=== PATIENT | male | born 1960 | race Caucasian/White ===

== ENCOUNTER 2021-01-18 15:21 | Inpatient (IN) | payer OTHER ==
[~2021-01-18] VITALS: Ht 180.3 cm; Wt 81.9 kg
--- NOTE | 2021-01-18 20:15 | NUR ---
PT ARRIVES TO THE FLOOR VIA STRETCHER. PT IS ABLE TO MOVE HIMSELF FROM STRETCHER TO BED WITH MINIMAL ASSISTANCE. 3L PER NC; SPO2 96%; PT REPORTS NO PAIN AT THIS TIME. ORIENTED BUT DROWSY; PT IS ABLE TO COMPLETE INITIAL MED HISTORY. ICE WATER PROVIDED. ORIENTED PT TO ROOM. CALL LIGHT WITHIN REACH.
--- NOTE | 2021-01-18 20:36 | EKG ---
[facility] [address] [facility] [place], [place] [address] Signed Sinus tachycardia Otherwise normal ECG No previous ECGs available Confirmed by DANA SUNSHINE DO ([id number]) on 01/18/2021 8:36:29 PM Electronically Signed By: DANA SUNSHINE DO 01/18/[id number] PATIENT NAME: DILIPFLOWER Deniz Electrocardiogram DATE OF : 64 PHYSICIAN: DANA SUNSHINE DO REPORT #: [id number] REPORT IS CONFIDENTIAL AND NOT TO BE RELEASED WITHOUT AUTHORIZATION
--- NOTE | 2021-01-18 20:45 | NUR ---
PT'S EX- AND SON ARRIVE. PT'S INFORMS THIS NURSE THAT PT HAS BEEN FALLING AT HOME. PT REPORTS THAT HE HAS NOT SHOWERED IN OVER 2 WEEKS. PT'S FAMILY REPORTS THAT THE PT HAS ALSO BEEN LOSING CONTROL OF HIS BOWELS. PT'S SON STAYS IN ROOM WITH PT AT THIS TIME.
--- NOTE | 2021-01-18 21:30 | NUR ---
PT REPORTS FEELING SLIGHTY SOB. SPO2 95% ON 3L NC. CALL IN TO RT FOR SCHEDULED NEB TREATMENT.
--- NOTE | 2021-01-18 22:30 | NUR ---
CHECKED ON PT. PT REPORTS SLIGHT NAUSEA AND PAIN. CIWA SCORE 9. HR 118-120, RR 27; PT IS RESTLESS IN BED. 1MG IV LORAZEPAM ADMINISTERED. CALL LIGHT WITHIN REACH.
--- NOTE | 2021-01-18 23:31 | NUR ---
CHECKED ON PT. PT IS RESTING COMFORTABLY, APPEARS TO BE SLEEPING WITH EYES CLOSED, EVEN BREATHING NOTED. SPO2 95% ON 3L NC, HR 110, RESP 24. CALL LIGHT WITHIN REACH.
--- NOTE | 2021-01-19 00:24 | NUR ---
CALL LIGHT ANSWERED. PT STATES THAT HE NEEDS TO HAVE A BM. SBA TO BSC. LOOSE STOOL ALREADY IN BED. PT URINATED ON FLOOR D/T NOT SITTING ON BSC CORRECTLY. NEW LINENS PLACED ON BED, FLOOR CLEANED, NEW GOWN ON PT. PT ASSISTED BACK TO BED. PT IS WEAK TO STAND ALTHOUGH MAKES TRANSFER FROM BSC TO BED WITH MINIMAL ASSIST. CALL LIGHT WITHIN REACH, PT DENIES FURTHER NEEDS AT THIS TIME.
--- NOTE | 2021-01-19 02:39 | NUR ---
CALL LIGHT ANSWERED. PT REPORTS LOWER ABDOMINAL PAIN AND NEEDING TO HAVE A BM. PT HAS VISIBLE HAND TREMORS. SBA TO BSC. PT HAD STOOL SMEARS IN BED. 225ML URINE COLLECTED, SCANT STOOL IN BSC BUCKET. PT BACK TO BED. CIWA SCORE 9. 1MG IV LORAZEPAM ADMINSTERED AT THIS TIME. CALL LIGHT WITHIN REACH.
--- NOTE | 2021-01-19 05:34 | NUR ---
IN ROOM FOR MORNING ASSESSMENT. PT WAS RESTING WITH EYES CLOSED; GRUNTS IN RESPONSE TO NURSE IN ROOM. VSS. ABDOMEN REMAINS DISTENDED AND FIRM. BOWEL TONES ACTIVE. BLE 2+ REMAINS. LUNG SOUNDS CLEAR AND DIM. PT REQUESTS JUICE; APPLE JUICE AND FRESH WATER PROVIDED. CALL LIGHT WITHIN REACH.
--- NOTE | 2021-01-19 07:30 | NUR ---
patient shift report recieved from retail shift leader rn. patient resting i nbed at this time. call light in reach. patient calls appropriately.
--- NOTE | 2021-01-19 08:30 | NUR ---
PATIENT UP TO USE CAMMODE AND MISSED CAMMODE. URINE ON THE FLOOR. LUCY GRAF WAS IN WITH PATIENT AT THIS TIME. URINE CLEANED UP AND PATIENT BACK TO BED. WILL CONTINUE TO CLOSELY MONITOR.
--- NOTE | 2021-01-19 09:15 | NUR ---
THIS RN IN AND ASSESSMENT COMPELTED. PATIENT BREATH SOUNDS CLEAR. PATIENT ON 2L NC. PATIENTS CIWA IS APPROX 8. GAVE PRN ORAL ATIVAN FOR COVERAGE. ALL MEDICATIONS GIVEN. PATIENT SWALLOWS PILLS 1 AT A TIME. PATIENTS ABD IS FIRM, DISTENDED, AND TENDER. PATIENT COMPLAINING OF PAIN RADIATING THROUGH TO HIS LOWER BACK. WILL SPEAK WITH MD ABOUT PAIN COVERAGE. PATIENTS EX- NAVEEN IS AT THE BEDSIDE. WILL CONTINUE TO CLOSELY MONITOR.
--- NOTE | 2021-01-19 09:45 | NUR ---
THIS RN IN TO SEE PATIENT AND MD AT THE BEDSIDE. REVIEWED PLAN OF CARE WITH PATIENT AND JOURDAN. ALL QUESTIONS ANSWERED. WILL CONTINUE TO CLOSELY MONITOR.
--- NOTE | 2021-01-19 11:28 | NUR ---
PATIENT RESTING IN BED WITH HIS EX- JOURDAN AT THE BEDSIDE. LIDODERM PATCH PLACE ON RIGHT LOWER BACK FOR PAIN. WILL ALLOW PATIENT TO REST AT THIS. CALL LIGHT IN REACH.
--- NOTE | 2021-01-19 12:18 | NUR ---
SOFIA GRAF IN TO ASSIST PATIENT WITH URINAL AT THE BEDSIDE. PATIENT TOLERATED WELL AND NOW BACK TO BED. PATIENTS BROTHER AT THE BEDSIDE. WILL CONTINUE TO CLOSELY MONITOR.
--- NOTE | 2021-01-19 13:45 | NUR ---
PATIENT REQUESTED TO BE BOOSTED UP IN BED. PATIENT STATES " MY BACK IS REALLY HURTING AGIN". GAVE PRN OXYCODONEFOR BACK/ABD PAIN 01/17 AND REPOSITIONED. LAW EARL IS AN 8 AT THIS TIME, GAVE A DOSE OF ORAL ATIVAN. PATIENTS HR ALSO NOTED TO BE INCREASED TO THE 120'S. PATIENT MEDICATIONS GIVEN. PATIENT TALKING WITH STAFF ABOUT HIS CONDITION AND THE TREATMENT HE IS RECIEVING FOR IT AT THIS TIME. UPDATED ON PLAN OF CARE. NO OTHER QUESTIONS AT THIS TIME. PATIENT REFUSED LUNCH, BUT WANTED SOME JUICE. ORDERED JUICE FROM THE KITCHEN. NO OTHER NEEDS AT THIS TIME. WILL CONTINUE TO CLOSELY MONITOR.
--- NOTE | 2021-01-19 15:45 | NUR ---
PATIETN RESTING IN BED. PATIENT REPORTS PAIN IS IMPROVED AFTER PRN PAIN MEDICATION. WILL CONTINUE TO ALLOW PATIENT TO REST AT THIS TIME. CALL LIGHT IN REACH.
--- NOTE | 2021-01-19 17:43 | NUR ---
PATIENT CALLED AND REQUESTED PAIN MEDICATION AND SOMETHING FOR ANXIETY. EDUCATED HE IS NOT DUE FOR PRN PAIN MEDICATIONS. PATIENT IS OKAY WAITING FOR PAIN MEDS AND STATES ITS NOT TO BAD RIGHT NOW. REPOSITIONED TO HIS SIDE FOR COMFORT. PATIETNS CIWA IS 8. PATIENT IS ALERT AND ORIETNED, IS FEELING A LITTLE FLUSHED, HR 110, AND FEELING A LITTLE ANXIOUS. PATIENTS EX- IS ALSO AT THE BEDSIDE TALKING WITH PATIENT ABOUT HIS BILLS AND RESPONSIBILITIES AT HOME. PRN ATIVAN GIVEN. WILL CONTINUE TO CLOSELY MONTIOR.
--- NOTE | 2021-01-19 18:20 | NUR ---
STAFF BOOSTED PATIENT UP IN BED. PATIENTS EX- AT THE BEDSIDE TO ASSIST PATIENT WITH HIS CHICKEN NOODLE SOUP. PATIENT REPROTS ANXIETY IS BETTER AT THIS TIME. CALL LIGHT IN REACH. WILL CONTINUE TO CLOSELY MONITOR.
--- NOTE | 2021-01-19 19:30 | NUR ---
REPORT RECEIVED FROM DAY SHIFT. PT IN BED, EYES CLOSED. RESTING HR 115'S.
--- NOTE | 2021-01-19 20:30 | NUR ---
PT ASKS FOR PAIN MEDS FOR 6/10 BACK/ABD PAIN. 2.5MG OXYCODONE GIVEN.
--- NOTE | 2021-01-19 23:15 | NUR ---
PT CALLS TO ASK FOR SOMETHING TO HELP HIM SLEEP. 1MG PO ATIVAN GIVEN, JACQUELINE 8.
--- NOTE | 2021-01-20 00:10 | NUR ---
PT CALLS TO STATE THAT HE HAD SAT UP TO EDGE OF BED AND TRIED TO USE URINAL BUT MISSED. PT HELPED TO CLEAN UP, ASSISTED BACK TO BED. BED ALARM ON.
--- NOTE | 2021-01-20 02:00 | NUR ---
PTS SPO2 DROPPING DOWN TO 88%, FOUND WITH O2 OFF, PLACED BACK ON 2L/NC AND UP TO 92%. PT ASKS FOR A NEB TX, STATES "I CAN TELL IM GOING TO START COUGHING, CAN I HAVE ONE OF THOSE TREATMENTS?". RT NOTIFIED AND ON THE WAY TO DO NEB.
--- NOTE | 2021-01-20 03:15 | NUR ---
PT GIVEN PAIN MEDICATION PER REQUEST FOR BACK/ABD PAIN. ASSESSMENT DONE, UP TO VOID THEN BACK TO BED.
--- NOTE | 2021-01-20 05:30 | NUR ---
UP TO VOID, UNSTEADY ON FEET, STOOD AT BEDSIDE TO USE URINAL WITH ASSIST. BACK TO BED WITH BED ALARM ON.
--- NOTE | 2021-01-20 07:30 | NUR ---
PATIENT SHIFT REPORT RECIEVED FROM GOVERNMENT AFFAIRS SPECIALIST RN. PATIENT RESTING AT THIS TIME. CALL LIGHT IN REACH. WILL CONTINUE TO CLOSELY MONITOR. BED ALARM ON.
--- NOTE | 2021-01-20 08:45 | NUR ---
BED ALARM GOING OFF. PATIENT SITTING UP TO THE EDGE OF THE BED WITH JOURDAN AT THE BEDSIDE. PATIENT REPROTS HE NEEDS TO URINATE.THIS RN ASSISTED PATIENT TO STAND. PATIENT IS MUCH MORE BALANCED THIS AM THAN NOTED YESTERDAY. PATIENT IS MORE AWAKE AND FOLLOWING COMMANDS. PATIENT DOES NOT APEPAR SHAKY AT THIS TIME. NEW ATTENDS PLACED. PATIENT ASSISTED BACK TO BED. EX- JOURDAN REMAINS AT THE BEDSIDE. BED ALARM ON. BREAKFAST ORDERED. WILL CONTINUE TO CLOSELY MONITOR.
--- NOTE | 2021-01-20 09:30 | NUR ---
PATIENT ASSESSMETN COMPLETED. PATIENT SITTING UP IN BED. MEDICATIONS GIVEN. PRN PAIN MEDICATION PROVIDED FOR PAIN 5/5 IN HIS ABD AND BACK. LIDODERM PATCH APPLIED TO RIGHT MID BACK. NICOTINE PATCH ON LEFT SHOULDER. BREATH SOUNDS CLEAR. PATIENT ON RA AT THIS TIME AND SPO2 NOTED TO BE 92-96%. PATIENTS ABD APPEARS LESS SWOLLEN THAN YESTERDAY. ABD IS STILL DISTENDED AND TIGHT, BUT NOT PAINFUL PER PATIENT. EDEMA NOTED IN BLE. ALL QUESTIONS ANSWERED. NO OTHER NEEDS AT THIS TIME. BED ALARM ON FOR PATIENT SAFETY. WILL CONTINUE TO CLOSELY MONITOR.
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
--- NOTE | 2021-01-20 11:40 | NUR ---
THIS RN TOOK PATIENT TO NEW ROOM 111 VIA BED. ALL BELONGINGS SENT WITH PATIENT. ONCE IN HIS NEW ROOM, ASSISTED PATIENT UP TO THE SCALE FOR A STANDING WEIGHT AND SO PATIENT COULD URINATE. PATIENT TOERLATED WELL AND ASSISTED BACK TO BED. CALL LIGHT PROVIDED. BED ALARM ON FOR PATIENT SAFETY. PATIENT LOOKING AT THE MENU TO ORDER LUNCH. RUEL GRAF IS AT THE BEDSIDE. NO FURTHER QUESTIONS AT THIS TIME.
--- NOTE | 2021-01-20 11:52 | NUR ---
PT ARRIVED TO FLOOR VIA BED FROM CCU. PT IS AWAKE AND ANSWERING QUESTIONS. VITALS TAKEN AND STABLE. MAGNESIUM 4GM IS INFUSING. PT IS VISIBLE FROM NURSING STATION. PT ORIENTED TO ROOM. STANDING WEIGHT OBTAINED. CALL LIGHT AND PERSONAL ITEMS WITHIN REACH. LUNCH ORDERED. PT RATES ABDOMINAL PAIN AT 3/10.
--- NOTE | 2021-01-20 12:09 | NUR ---
PATIENT SHIFT REPORT RECIEVED FROM CLAIMS AGENT RIGHT OF WAY RN. PATIENT RESTING AT THIS TIME. CALL LIGHT IN REACH. WILL CONTINUE TO CLOSELY MONITOR. BED ALARM ON.
--- NOTE | 2021-01-20 12:33 | NUR ---
PT USED CALL LGITH APPROPRIATLY AND CALLED NURSING STAFF TO ASSIST TO USE URINAL. PT STOOD AT SIDE OF BED [facility] NURSE. PT IS UNSTEADY ON FEET ALMOST FALLING FORWARD. PT REFUSED TO SIT IN CHAIR FOR [facility] HAND REPORTS HE IS NOT HUNGRY AT THIS MOMENT. CALL LIGHT IN REACH.
--- NOTE | 2021-01-20 13:11 | NUR ---
PT LAYING DOWN FOR NAP. WARM BLANKET PROVIDED.
--- NOTE | 2021-01-20 14:34 | NUR ---
IN TO RENEE NEUMANN. PT LYING IN BED WATCHING TV. CIWSA DONE. PT SCORE IS 1. PT DENIES NEEDS. CALL LIGHT IN REACH.
--- NOTE | 2021-01-20 15:20 | NUR ---
PT AMBULATED IN HALLS WITH NURSE AND FWW 1 SMAL LAP WITH MULTIPLE STANDIGN BREAKS. PT NEEDING MULTIPLE CUES TO NOT LEAN ON ARMS AND STAND UP STRAIGHT. PT ASSITED BACK IN BED. DINNER ORDERED AND PAIN PILL FOR 6/10 BACK PAIN PROVIDED. WATER REFRESHED. PT DENIES FURTHER NEEDS.
--- NOTE | 2021-01-20 15:48 | NUR ---
PT CALLED REQUESTING NICOTINE LOZENGE.
--- NOTE | 2021-01-20 20:06 | NUR ---
PATIENT REQUESTING ATIVAN, VISUAL TREMORS NOTED, PATIENT CLAMMY/SWEATY, AND UNSURE OF DATE. 2MG PO ATIVAN GIVEN AND A JOSE L LOZANGE. ICE WATER REFILLED. HELPED PATIENT WITH URINAL. PATIENT IN BED WITH CALL LIGHT IN REACH.
--- NOTE | 2021-01-20 21:35 | NUR ---
REPORT RECEIVED FROM HOMAR COBB, THIS RN TO RESUME CARE FOR pt. pt RESTING QUIETLY IN BED WITH EYES CLOSED, RR EVEN AND UNLABORED. NO DISTRESS NOTED, pt APPEARS COMFORTABLE AND RELAXED. BED ALARM ON FOR SAFETY.
--- NOTE | 2021-01-20 22:41 | NUR ---
CALL LIGHT ANSWERED, ROOM TEMP INCREASED PER pt REQUEST. CIWA NEGATIVE AT THIS TIME, pt DENIES ANXIETY/AGITATION. RR EVEN AND UNLABORED, RR 20. HR 110, O2 SAT MID 90'S ON RA. ORIENTED AND CALLING APPROPRAITELY. BED ALARM REMAINS ON FOR SAFETY, pt DENIES NEED TO VOID. NO FURTHER NEEDS, CALL LIGHT IN REACH. ALLOWED pt TO CONTINUE RESTING, WILL MONITOR FOR CHANGES.
--- NOTE | 2021-01-21 01:30 | NUR ---
BED ALARM GOING OFF, pt SITTING ON EDGE OF BED. pt UP TO VOID 1PA, 125MLS CONCENTRATED URINE NOTED. pt BACK IN BED, UNSTEADY ON FEET. pt THEN UP WITH HELP FROM THIS RN AND HOMAR KRAUSE TO HAVE BM, AGAIN UNSTEADY. pt BACK IN BED WITH ALARM ON. CIWA SCORE OF 8 D/T FELINGS OF ANXIETY/RESTLESSNESS AND VISUABLE TREMORS, PRN ANXIETY MED GIVEN (SEE EMAR). pt REPORTS 3/10 PAIN, IMPROVED WITH REPOSITIONING, UNABLE TO GIVE PAIN MEDS AT THIS TIME, pt AWARE. CALL LIGHT IN REACH, pt REQUESTING BREATHING TREATMENT D/T COUGH. RT WILLY AWARE.
--- NOTE | 2021-01-21 01:35 | NUR ---
CALL LIGHT ANSWERED, pt REPORTS SPILLING WATER ON FLOOR. WATER CLEANED UP AND FRESH WATER GIVEN. CALL LIGHT IN REACH.
--- NOTE | 2021-01-21 01:37 | NUR ---
WATER AGAIN SPILLED ON FLOOR, MESS CLEANED AND pt DENIES FURTHER NEEDS. CALL LIGHT IN REACH. BED ALARM ON FOR SAFETY.
--- NOTE | 2021-01-21 01:55 | NUR ---
RT WILLY IN ROOM FOR PRN BREATHING TREATMENT.
--- NOTE | 2021-01-21 03:34 | NUR ---
pt RESTING QUIETLY IN BED WITH EYES CLOSED, RR EVEN AND UNLABORED. NO DISTRESS NOTED, CALL LIGHT IN REACH AND BED ALARM ON.
--- NOTE | 2021-01-21 06:12 | NUR ---
VSS AND I&O'S COMPLETE, DAILY WEIGHT ALSO DONE. pt DENIES NEED TO VOID, HAS ONLY VOIDED 175MLS THIS SHIFT, pt BLADDER SCANNED, HIGHEST RESULT OF 351MLS. WILL MONITOR AND HAVE pt ATTEMPT TO VOID PRIOR TO SHIFT CHANGE. NO FURTHER NEEDS, CALL LIGHT IN REACH. PRE SCHOOL MANAGER BAILEY AWARE.
--- NOTE | 2021-01-21 07:10 | NUR ---
pt UP TO VOID, 125MLS CONCENTRATED URINE NOTED. pt SHORT 186MLS FOR SHIFT UO, MESSAGE SENT TO DR SUNSHINE. pt BACK IN BED AND ALARM ON FOR SAFETY. CALL LIGHT IN REACH.
--- NOTE | 2021-01-21 07:24 | NUR ---
REPORT RECEIVED. PT IN BED AWAKE WATCHING TV. 1L NC IN PLACE FOR PATIENT COMFORT. PT 94% ON RA. 97% ON 1 L NC. PT ALSO WANTING TO KEEP PULSE OXEMETRY IN PLACE BECAUSE IT MAKES HIM FEEL LIKE HE HAS A CIGARETTE IN HAND. BED ALARM IN PLACE. CALL LIGHT IN REACH.
--- NOTE | 2021-01-21 07:33 | NUR ---
PT AWAKE IN BED. WHITE BOARD UPDATED. WARM CLOTH GIVEN FOR FACE. CALL LIGHT WITHIN REACH. NO FURTHER NEEDS AT THIS TIME.
--- NOTE | 2021-01-21 07:52 | NUR ---
RESPITORY THERAPY IN FOR BREATHING TREATMENT
--- NOTE | 2021-01-21 09:30 | NUR ---
Pt lives in a house with his exwife. Moved to [place] one year ago. Pt does not have a pcp. He abuses alcohol and does agree to Peer to Peer support. Called and spoke with Esther and she will visit from [facility] this afternoon. Pt is unsteady on his feet and is using a walker. Per exwife he can return home with her and she will care for him. Brother, Hugo, is also present from [facility]. I will find a pcp for pt.
--- NOTE | 2021-01-21 09:40 | NUR ---
Delivered [facility] brochure to Rasheed. Dr. Myers updating pt and brother. He will order PT/OT, [employer] to work with pt. Possible dc tomorrow or the next. I contacted [facility] and they will schedule with Dr. Guzman depending on day of dc. Pt will need to see pcp and follow up for comprehensive liver MRI as out patient.
--- NOTE | 2021-01-21 09:50 | NUR ---
ROUNDED WITH DR SUNSHINE AND JOSE FROM CASE MANAGEMENT TO DISCUSS PLAN OF CARE DURING HOSPITAL STAY AND DISCHARGE. ALL PT'S QUESTIONS ANSWERED. BROTHER AT BEDSIDE DURING MEETING.
--- NOTE | 2021-01-21 10:45 | NUR ---
OCCUPATIONAL THERAPY IN TO ASSESS PT.
--- NOTE | 2021-01-21 11:02 | NUR ---
PEER TO PEER IN WITH PT.
--- NOTE | 2021-01-21 14:20 | NUR ---
PT IS AMBULATING IN [place] WITH Fan FULLER. WILL CHECK BACK
--- NOTE | 2021-01-21 14:24 | NUR ---
PT WORKING WITH PHYSICAL THERAPY.
--- NOTE | 2021-01-21 14:38 | NUR ---
PT FINISHED WITH PHYSICAL THERAPY AND IS REQUESTING PAIN MEDICAITON, BREATHING TREATMENT AND NICOTINE LOZENGE. PT REPORTS 6/10 PACK AND LEFT HIP PAIN. 2.5MG OXYCODONE ADMINISTERED AND LOZENGE PROVIDED. RT IN TO [facility]ES. PT NOW IN BED ON PHONE WITH EX .
--- NOTE | 2021-01-21 16:45 | NUR ---
ASSISTED PT TO SHOWER. PT VERY ONSTEADY ON FEET. HAD SIT OON SHOWER CHAIR. PT REPORTS 2/10 PAIN ONCE BACK TO BED. PT HAVING SOME AXIETY. CIWA 7. 1MG ATIVAN ADMINISTERED. FAMILY AT BEDSIDE. DINNER ORDERED. CALL LIGHT IN REACH.
--- NOTE | 2021-01-21 19:28 | NUR ---
REPORT RECEIVED FROM DAY SHIFT RN. PT LYING IN BED RESTING WITH EYES CLOSED. RESPIRATIONS EVEN. CALL LIGHT IN HAND. WHITE BOARD UPDATED. BED ALARM FOR SAFETY.
--- NOTE | 2021-01-21 21:15 | NUR ---
BED ALARM SOUNDING. PT TRANSFERRED SELF TO CHAIR BEFORE STAFF COULD ENTER ROOM. REMINDED PT TO USE CALL LIGHT WHEN GETTING OUT OF BED DUE TO BEING UNSTEADY, PT STATES "I'M GETTING BETTER". PT WANTED TO SIT IN RECLINER TO LOOK OUT WINDOW. ASSESSMENT COMPLETE. PITTING EDEMA AND DISTENDED ABD NOTED. PT WITH LOOSE COUGH. DENIES SOB AT THIS TIME. SBA AND FWW TO BR FOR UNMEASURED CONCENTRATED VOID. GAIT UNSTEADY. PT LEANS BACK WITH AMB. BACK TO BED. PRN ADMINISTERED FOR CIWA OF 8 AND PRN FOR PAIN ADMINISTERED FOR C/O BACK PAIN. VS AND I&O COMPLETE. PT DENIES QUESTIONS OR CONCERNS. CALL LIGHT IN REACH.
--- NOTE | 2021-01-21 22:39 | NUR ---
CALL LIGHT ANSWERED. PT REQUESTING SNACK. KEARAO X2 PROVIDED. BED ALARM ON.
--- NOTE | 2021-01-22 00:15 | NUR ---
PT RESTING IN BED WITH EYES CLOSED, NAD.
--- NOTE | 2021-01-22 02:04 | NUR ---
CALL LIGHT ANSWERED. PT UP TO BR WITH SBA AND FWW TO ATTEMPT BM WITH NO RESULTS. PT WITH CONCENTRATED UNMEASURED VOID. GAIT WEAK. BACK TO BED, YUKI WELL. PT REQUESTING PRN FOR ANXIETY, PROVIDED. PT WITH PERSISTENT COUGH. REQUESTING PRN BREATHING TX. RT NOTIFIED. BED ALARM FOR SAFETY.
--- NOTE | 2021-01-22 04:06 | NUR ---
CALL LIGHT ANSWERED. PT REPORTS BACK PAIN 01/17. PRN FOR PAIN ADMINISTERED PER EMAR. ASSISTED PT TO REPOSITION IN BED. ASSESSMENT COMPLETE. PT DENIES FURTHER NEEDS AT THIS TIME. CALL LIGHT IN REACH. BED ALARM FOR SAFETY.
--- NOTE | 2021-01-22 07:33 | NUR ---
this rn recived report from cierra kendrick. pt appears to be resting with respirations noted
--- NOTE | 2021-01-22 08:45 | NUR ---
THIS RN IN PTS ROOM TO GIVE PT HIS MORNING MEDS. PTS IN ROOM AND PTS BROTHER IN ROOM TO FOLLOW. PT SITTING UP TO EAT BREAKFAST, PT STATES THAT HE IS DONE, WHEN THIS RN ENTERED ROOM PT WAS COUGHING AFTER EATING. PT APPEARS TO BE WEAK BECAUSE HE IS UNABLE TO GET A DEEP COUGH TO MAKE IT PRODUCTIVE- PTS COUGH NOTED TO BE NEEDED TO BE PRODUCTIVE. THIS RN ASKED MD FOR SPEECH EVAL- ORDERED. THIS RN DISCUSSED WITH PTS FAMILY THE IMPORTANCE OF HAVING SPEECH THERAY EVAL DUE TO PTS PNUEMONIA STATUS AND POSSIBLE ASPIRATION RISK. PT REPORTS PAIN- PAIN MEDS NOT DUE YET. PT CIWA LESS THAN 8
--- NOTE | 2021-01-22 09:00 | NUR ---
Spoke with pt and ex . Friend is also in the room. Pt states he spoke with Esther smallwood [facility] and will follow up with her on dc. States he is tired and ex states he is grumpy today. Friend in the room working on POA forms as pt wants financial poa completed. Gave my email for him to send to and I will print and deliver to the room. Delivered form to room and asked if I should call Not[facility]. Juan Daniel states nursing has already called.
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
--- NOTE | 2021-01-22 12:50 | NUR ---
PATIENT GIVEN PRN LOZENGE PER REQUEST. PATIENT IS VISITING WITH BROTHER. LUNCH ORDER PLACED FOR PATIENT. PATIENT DENIES ANY FURTHER NEEDS. CALL LIGHT IN REACH.
--- NOTE | 2021-01-22 13:41 | NUR ---
PATIENT IS RESTING IN BED VISTING WITH FAMILY. PATIENT DENIES ANY NEEDS. CALL LIGHT IN REACH.
--- NOTE | 2021-01-22 14:05 | NUR ---
THIS RN IN PTS ROOM TO CHECK ON PT. PT SITTING UP IN BED WITH , SON AND DAUGHTER IN LAW. PT REPORTS NEEDING NOTHING AT THIS TIME. ALL QUESTIONS ANSWERED TO THE BEST OF THIS RNS ABILITY
--- NOTE | 2021-01-22 15:00 | NUR ---
THIS RN IN PTS ROOM. PT SITTING ON EDGE OF BED. PT REPORTS WANTING A PAIN PILL, THIS RN DISCUSSED WITH PT THAT IT WASN'T TIME FOR A PAIN PILL AT THIS TIME. PT ALSO REQUESTING AN ANTI ANXIETY MED. THIS RN DISCUSSED WITH PT THAT HE IS NOT SCORING THE AMOUNT TO RECIEVE THE ATIVAN DUE TO IT BEING THERE TO HELP WITH WITHDRAWL SYMPTOMS
--- NOTE | 2021-01-22 18:00 | NUR ---
LARS RN IN TO CHECK ON PT. VITALS DONE- PT RESTING COMFORTALBY. PT STATES THAT PAIN IS BETTER. PT IS LAYING FLAT PT DOES HAVE DRY/ UNPRODUCTIVE COUGH- PT DOES HAVE ACUPELLA AT BEDSIDE- USES WHEN QUED.
--- NOTE | 2021-01-22 19:34 | NUR ---
REPORT RECEIVED FROM DAY SHIFT RN. PT UP TO BR WITH SBA TO VOID AND HAVE BM. BACK TO BED, YUKI WELL. NO FURTHER NEEDS AT THIS TIME. WHITE BOARD UPDATED. CALL LIGHT IN REACH.
--- NOTE | 2021-01-22 20:12 | NUR ---
EVENING ASSESSMENT COMPLETE. PT REPORTS PAIN IS TOLERABLE AT THIS TIME. DENIES SOB. PITTING EDEMA NOTED IN BLE. ABD DISTENDED AND FIRM. VS WNL. I&O COMPLETE. PT REMAINS WELL WITHIN FLUID RESTRICTION. PT DENIES QUESTIONS OR CONCERNS. BED ALARM FOR SAFETY. CALL LIGHT IN REACH.
--- NOTE | 2021-01-22 23:38 | NUR ---
CALL LIGHT ANSWERED. SBA WITH FWW TO RESTROOM FOR VOID AND LARGE LOOSE BM. pt BACK IN BED AT THIS TIME. GAIT STEADY AT THIS TIME WTIH WALKER. pt REQUESTING NEXT PRN PAIN MEDICATION WHEN AVAIALBLE. PRIMARY RN NOTIFIED. BED ALARM ON.
--- NOTE | 2021-01-22 23:55 | NUR ---
PT REPORTS 5/10 BACK/HIP PAIN. PRN FOR PAIN ADMINISTERED PER EMAR. NO FURTHER NEEDS AT THIS TIME. CALL LIGHT IN REACH. BED ALARM FOR SAFETY.
--- NOTE | 2021-01-23 02:03 | NUR ---
PT RESTING IN BED WITH EYES CLOSED, NAD.
--- NOTE | 2021-01-23 03:56 | NUR ---
PT LYING IN BED ON RIGHT SIDE RESTING WITH EYES CLOSED. RESPIRATIONS EVEN. BED ALARM FOR SAFETY.
--- NOTE | 2021-01-23 06:09 | NUR ---
PT UP TO BR WITH SBA AND FWW TO VOID AND HAVE LARGE FORMED BM. GAIT STEADY. DAILY WEIGHT OBBTAINED AND CHARTED. BACK TO BED, YUKI WELL. VS AND I&O COMPLETE. PT REMAINS WITHIN FLUID RESTRICTION. REPORTS PAIN IS TOLERABLE. NO FURTHER NEEDS AT THIS TIME. CALL LIGHT IN REACH. BED ALARM FOR SAFETY.
--- NOTE | 2021-01-23 07:25 | NUR ---
THIS RN RECEIVED REPORT FROM [facility]. PT APPEARS TO BE RESTING COMFORTABLY WITH RESPIRATIONS NOTED.
--- NOTE | 2021-01-23 08:30 | NUR ---
THIS RN TO HOLD PTS MORNING MEDS UNTIL SPEECH THERAPY ABLE TO EVLAUATE PTS SWALLOW. PT APPEARS TO BE RESTING THIS AM COMFORTABLY. PT IS PLANNED TO WORK WITH SPEECH THERAPY, OCCUPATIONAL THERAPY, AND PHYSICAL THERAPY.
--- NOTE | 2021-01-23 09:45 | NUR ---
THIS RN IN PTS ROOM TO CHECK ON PT AND GIVE MORNING MEDS. PT HAS WORKED WITH 2 THERAPIES THIS AM- PT IS CLEARED TO EAT AND DRINK BY SPEECH. PT STATES THAT HE IS TIRED AFTER WORKING WITH 2 THERAPIES AND WANTS TO WAIT ON PHYSCIAL THERAPY. THIS RN DISCUSSED WITH PT THAT WE STAFF CAN ONLY SO [facility] FOR HIM BUT THAT HE NEEDS TO PUT IN THE WORK WELL WITH THE THERAPIES TO GET BETTER- PT AGREEABLE TO THERAPIES.
--- NOTE | 2021-01-23 10:36 | NUR ---
returned [employer] form for lending of equipment. Faxed to [employer] for and she will visit them today or tomorrow to supervisor picking crew equipement.
--- NOTE | 2021-01-23 10:50 | NUR ---
THIS RN IN PTS ROOM TO HANG PTS MAG AND GIVE PT REQUESTED PAIN PILL. PT STATES THAT HE NEEDS NOTHING FURTHER AT THIS TIME
--- NOTE | 2021-01-23 12:45 | NUR ---
THIS RN IN PTS ROOM TO ASSIST PT TO RESTROOM. PT IMPULSIVE WHEN STANDING BUT ONCE WALKING IS STEADY ON HIS FEET.
--- NOTE | 2021-01-23 13:15 | NUR ---
THIS RN IN PTS ROOM TO ASSIT PT TO BATHROOM AGAIN. PT HAD STATED THAT HIS BACK WAS HURTING. THIS RN PROVIDED PT WITH A HEAT PACK- HEAT PACK DID PRIVIDE RELIEF BUT DID MAKE PTS SKIN RED. HEAT PACK PLACED IN A PILLOW CASE TO PROTECT SKIN FURTHER. PT IS NOW QUANITY SUFFIENT
--- NOTE | 2021-01-23 13:38 | NUR ---
THIS RN DISCUSSED WITH ABOUT PTS FAMILY REQUEST FOR A CREAM FOR PTS BACK. CREAMS ARE CONTRAINDICATED AT THIS TIME.
--- NOTE | 2021-01-23 13:45 | NUR ---
Spoke with Talia. Reviewed needs for dc to home. Pt feels he is able to get in and out of a care. Juan Daniel will seed cone picker equipment from [place]. She denies other needs. She does state concern pt will not continue to walk at home. I will ask Dr. Rain for a HH order for PT. Discussed there may be a copay, and they may refuse service if they are unable to pay. Pt cont. to plan for dc to home with ex .
--- NOTE | 2021-01-23 14:43 | NUR ---
ATTEMPTED TO VISIT PT. LEEANNE HANSEN IN WITH PT. WILL CHECK BACK
--- NOTE | 2021-01-23 17:10 | NUR ---
THIS RN IN PTS ROOM TO V EPT PAIN MEDS REQUESTED. PT REPORTS THAT HIS PAIN IS 6/10. PT HAS NO OTHER CONCERNS OR NEEDS AT THIS TIME.
--- NOTE | 2021-01-23 18:13 | NUR ---
PT APPEARS TO BE RESTING COMFORTABLY AT THIS TIME WITH RESPIRATIONS NOTED. PTS TO LEAVE FOR THE EVENING
--- NOTE | 2021-01-23 19:05 | NUR ---
SHIFT REPORT RECEIVED FROM RAJNI GRAF. PT RESTING IN BED. NO NEEDS AT THIS TIME. CALL LIGHT IN REACH.
--- NOTE | 2021-01-23 21:28 | NUR ---
ASSESSMENT, VS AND I&O COMPLETED. PATCHES REMOVED. GCS 15, A&O X4. PT BACK PAIN 3/10, HEAT PACK PROVIDED. IVs WNL, CDI, FLUSHED WELL. LUNGS CLEAR, HEART TONES REGULAR. ABD SEVERELY DISTENDED, FIRM, NONTENDER, BOWEL TONES ACTIVE. CMS INTACT. BLE 2+ EDEMA, BILATERAL FEET, 3+ EDEMA. LOZENGE PROVIDED. NO OTHER NEEDS AT THIS TIME. CALL LIGHT IN REACH.
--- NOTE | 2021-01-23 22:00 | NUR ---
PT REQUESTS SOMETHING TO HELP HIM SLEEP. MD NOTIFIED. TELEPHONE ORDER PROVIDED FOR BENADRYL 50MG PO ONCE FOR SLEEP. ORDER REPEATED BACK.
--- NOTE | 2021-01-23 22:28 | NUR ---
SCHEDULED MED PROVIDED. ICE WATER PROVIDED. NO OTHER NEEDS. CALL LIGHT IN REACH.
--- NOTE | 2021-01-23 23:43 | NUR ---
PT STATES HE HAS 4/10 BACK AND LEFT HIP PAIN, PRN PAIN MED PROVIDED. NO OTHER NEEDS. CALL LIGHT IN REACH
--- NOTE | 2021-01-24 00:54 | NUR ---
PT RESTING IN BED, CALL LIGHT IN REACH.
--- NOTE | 2021-01-24 02:10 | NUR ---
PT CALLED, SBA WITH FWW TO AND FROM BATHROOM. ASSISTED WITH COVERS. BED ALARM PLACED. NO OTHER NEEDS AT THIS TIME.
--- NOTE | 2021-01-24 03:19 | NUR ---
PT CALLED ASKING FOR A WARM BLANKET. HE DENIES FURTHER NEEDS. CALL LIGHT IS CLOSE.
--- NOTE | 2021-01-24 03:59 | NUR ---
PT RESTING IN BED, CALL LIGHT IN REACH.
--- NOTE | 2021-01-24 05:45 | NUR ---
ASSESSMENT, VS AND I&O COMPLETED. PT BACK AND LEFT HIP PAIN 4/10, PRN PAIN MED PROVIDED. GCS 15, A&O X4. LUNGS CLEAR, HEART TONES REGULAR. ABD FIRM, NONTENDER, SEVERE DISTENTION, BOWEL TONES ACTIVE. BLE HAS 2+ EDEMA, BILATERAL FEET HAVE 3+ EDEMA. CMS INTACT. PT DECLINES TO COMPLETE DAILY WEIGHT AT THIS TIME. NO OTHER NEEDS. CALL LIGHT IN REACH.
--- NOTE | 2021-01-24 07:50 | NUR ---
this rn to assume care while wilfredo rn off of floor.
--- NOTE | 2021-01-24 08:44 | NUR ---
this rn assisted pt to restroom per pt request. pt impulsive and stands fast but is steady on feet with the fww. pt attempted to stand to pee. this rn discussed with pt to sit to pee. pt compliant
[2021-01-24] MEDS ORDERED: NICOTINE LOZENGE4 MG BUCCAL (09:17)
[2021-01-24] MEDS ORDERED: SPIRONOLACTONE25 MG PO (09:17)
[2021-01-24] MEDS ORDERED: LACTULOSE20 GM/30 M PO (09:18)
[2021-01-24] MEDS ORDERED: FUROSEMIDE20 MG PO (09:19)
[2021-01-24] MEDS ORDERED: VITAMIN B-1100 MG PO (09:19)
[2021-01-24] MEDS ORDERED: POTASSIUM CHLO10 MEQ PO (09:20)
--- NOTE | 2021-01-24 09:20 | NUR ---
LARS RN IN PTS ROOM TO GIVE PT HIS MORING MEDS. PT SITTING UP IN BED. SIGNIFICANT OTHER TO GET CLOTHES AND PT TO DISCHARGE TODAY. PT HAS NO COMPLATINTS. EDUCATION PROVIDED TO PT ABOUT STAYING ON HIS FLUID RESTRTICTION. PT AGREABLE
[2021-01-24] MEDS ORDERED: PROVENTIL HFA6.7 GM INH (10:56)
--- NOTE | 2021-01-24 11:40 | NUR ---
ALL DISCHARGE INSTRUCTIONS REVIEWED WITH PT. AND QUESTIONS ANSWERED. PT LEFT WITH ALL BELONGINGS WITH AND CUT OUT PRESS OPERATOR VIA WHEELCHAIR.
--- NOTE | 2021-01-24 13:05 | NUR ---
Face sheet, F2F, H&P, DC summary, extended order for HH faxed to [facility] as per pt's request.
--- NOTE | 2021-01-24 14:08 | NUR ---
PT ALERT, ORIENTED AND LAYING IN BED VISITING WITH HIS EX-. PT IS PLEASANT AND WAS VERY PLEASED WITH CARE HE HAS RECEIVED AT [facility]. GAVE ENCOURAGEMENT TO BOTH, PT ACKNOWLEDGED HE HAS A BIT OF A DURAN ON HIS HANDS. REQUESTED PRAYER, GAVE G.POST AND BLESSING. PT TO DC LATER TODAY
== END 2021-01-24 11:40 | disposition home health service (06) | DRG 871 ==
LOC: ED 15:21 → MS 19:14 → CCU 19:14 → MS 01-20 11:31
PROVIDERS: ADMIT Student in an Organized Health Care Education/Training Program; ATTEND Student in an Organized Health Care Education/Training Program
DX: A40.9 Streptococcal sepsis, unspecified (principal); J15.4 Pneumonia due to other streptococci; J96.01 Acute respiratory failure with hypoxia; F10.139 Alcohol abuse with withdrawal, unspecified; J44.0 Chronic obstructive pulmonary disease with (acute) lower respiratory infection; E87.1 Hypo-osmolality and hyponatremia; R65.20 Severe sepsis without septic shock; Z20.822 Contact with and (suspected) exposure to COVID-19; K70.30 Alcoholic cirrhosis of liver without ascites; F17.200 Nicotine dependence, unspecified, uncomplicated; E79.0 Hyperuricemia without signs of inflammatory arthritis and tophaceous disease; K76.89 Other specified diseases of liver; E87.6 Hypokalemia; E83.42 Hypomagnesemia; R00.0 Tachycardia, unspecified; R13.12 Dysphagia, oropharyngeal phase; R26.89 Other abnormalities of gait and mobility
CPT/HCPCS: 36415; 71045; 74177; 76705; 80048; 80053; 81001; 82140; 83605; 83735; 84484; 85025; 85610; 87040; 92610; 93005; 93010; 94640; 94668; 94760; 96374; 96375; 97110; 97116; 97163; 97165; 97530; 99285-25; A9270; A9270-GY; C9803; J0456; J0696; J1650; J1940; J2060; J3411; J3475; J7030; J7060; Q0163; Q9967; U0003

== ENCOUNTER 2025-03-14 08:54 | Day surgery (SDC) | payer OTHER ==
[~2025-03-14] VITALS: Ht 177.8 cm; Wt 75.0 kg
[~2025-03-14 08:54] MED LIST: FUROSEMIDE20 MG PO; IBLOOD GLUCOSE TEST STRIP 1 EA TEST VI PRN; LACTATED RINGER'S 1,000 ML IV SCH; LACTULOSE20 GM/30 M PO; LIDOCAINE HCL 1% 5 ML SDV INJ ONE; NICOTINE LOZENGE4 MG BUCCAL; POTASSIUM CHLO10 MEQ PO; PROVENTIL HFA6.7 GM INH; SPIRONOLACTONE25 MG PO; TRELEGY ELLIPT1 EACH INH; VITAMIN B-1100 MG PO
[2025-03-14 08:59] VITALS: BP 126/67
[2025-03-14] MEDS ORDERED: DEXAMETHASONE SOD PHOS 4 MG/ML VIAL ONE ×2 (09:18→10:22)
[2025-03-14] MEDS ORDERED: LIDOCAINE HCL 2% 5 ML SDV ONE (09:19)
[2025-03-14] MEDS ORDERED: ROCURONIUM BROMIDE 50 MG/5 ML SYR ONE (09:19)
[2025-03-14] MEDS ORDERED: SUGAMMADEX SODIUM 200 MG/2 ML ML ONE ×2 (09:19→10:31)
[2025-03-14] MEDS ORDERED: fentaNYL citrate 100 MCG/2 ML VIAL ONE (09:21)
[2025-03-14] MEDS ORDERED: SEVOFLURANE 250 ML BTL ONE (10:06)
--- NOTE | 2025-03-14 10:48 | NUR ---
03/14/25 Demarco8 Linda Bell PATIENT ARRIVES TO PACU COUGHING. SUCTION IS PROVIDED FOR PATIENT TO SPIT INTO AND HE FOLLOWS INSTRUCTIONS WELL. OXYGEN IS REMOVED AND HOB IS ELEVATED.
[2025-03-14 11:12] VITALS: BP 123/73
[2025-03-14 12:13] VITALS: BP 129/70
--- NOTE | 2025-03-14 12:20 | EKG ---
[facility] [address] [facility] [place] [address] Signed Normal sinus rhythm Normal ECG When compared with ECG of 30-SEP-2021 09:39, No significant change was found Confirmed by Noe Wade MD ([id number]) on 03/14/2025 12:20:29 PM Electronically Signed By: NOE WADE MD 03/14/25 1220 PATIENT NAME: FLOWER CHERRY GLORIA Electrocardiogram DATE OF : 64 PHYSICIAN: NOE WADE MD REPORT #: [id number] REPORT IS CONFIDENTIAL AND NOT TO BE RELEASED WITHOUT AUTHORIZATION
--- NOTE | 2025-03-14 12:47 | NUR ---
RADHA 1108-PT BACK TO ROOM FROM PACU ON RA. RECEIVED REPORT FROM RYLAN GRAF. PT IS DROWSY. RESP EVEN AND UNLABOED. RATES PAIN 3/10 AND THIS IS TOLERABLE AT THIS TIME. PT HAS SUCTION IF NEEDED TO SPIT INTO. PT HAS NOT BEEN COUGHING SINCE ARRIVING TO DAY SURGERY. PT HAS BEEN DRINKING WATER. DECLINES SNACK AT THIS TIME. CALL LIGHT WITHIN REACH.
--- NOTE | 2025-03-14 12:52 | NUR ---
LE 1213-PT AWAKE AND WATCHING TV. RESP EVEN AND UNLABORED. RATES PAIN 3/10 AND THIS IS TOLERABLE. PT HAS SUCTION TO USE IF NEEDED. PT HAS NOT BEEN COUGHING MUCH OVER THE LAST HOUR. PT DRINKING WATER. PT DECLINES SNACK AT THIS TIME. CALL LIGHT WITHIN REACH. LE 1215-PT READY TO GO HOME. WILL GET DRESSED. LE 1219-PT AMBULATES TO RESTROOM. LE 1223-PT BACK TO ROOM.
--- NOTE | 2025-03-14 12:56 | NUR ---
RADHA 1225-WENT OVER DISCHARGE INSTRUCTIONS WITH PT. ALL QUESTIONS ANSWERED. PT AMBULATES TO WHEELCHAIR AND RIDE PROVIDED TO FRONT OF HOSPIAL WHERE FRIEND WAS WAITING WITH THE CAR.
[2025-03-14] MEDS ORDERED: SEVOFLURANE 250 ML BTL INH ONE (14:51)
--- NOTE | 2025-03-20 15:08 | PATH ---
[facility] [address], [place] [address] Signed SPECIMEN(S): A LEFT LARYNGEAL TUMOR SPECIMEN SOURCE: A. LEFT LARYNGEAL TUMOR CLINICAL HISTORY: Laryngeal lesion, left side FINAL PATHOLOGIC DIAGNOSIS: Left laryngeal lesion, biopsy: - Squamous cell carcinoma, well-differentiated, p16 negative. - See comment. COMMENT: Review of the tissue submitted for examination shows invasive squamous epithelium with mild to moderate cytologic atypia. Dual multiplex immunohistochemical stain p40/CK5/6 and stained p16 show the cells are negative for p16 and positive for both p40 and CK5/6, supporting the above diagnosis. As part of [facility] corporate quality manager program, this case was reviewed by an additional member of the pathology staff. MICROSCOPIC EXAMINATION: Histologic sections of all submitted blocks are examined by light microscopy. These findings, together with the gross examination, support the pathologic diagnosis. Histologic sections of all submitted blocks are examined by light microscopy. These findings, together with the gross examination, support the pathologic diagnosis. GROSS DESCRIPTION: The specimen, labeled and designated "Jean-Pierre left laryngeal tumor," is received in formalin and consists of multiple lopez-joseph granular tissue fragments averaging 0.3 cm in greatest dimension, submitted in cassette A1. TN (under the direct supervision of a pathologist) The Gross Description was prepared using a voice recognition system. The report was reviewed for accuracy; however, sound-alike word errors, addition and/or deletions may occur. If there is any question about this report, please contact Client Services. PATIENT NAME: FLOWER CHERRY PATHOLOGY DATE OF : 64 REPORT #: [id number] PHYSICIAN: SINA CHAPMAN PCP: RENEE BROWN PA-C REPORT IS CONFIDENTIAL AND NOT TO BE RELEASED WITHOUT AUTHORIZATION [address] [address] Signed ADDITIONAL NOTES: Immunohistochemical and/or in situ hybridization studies if performed in this case included appropriate positive controls that reacted as expected. This test was developed and its performance characteristics determined by [facility]. It has not been cleared or approved by the U.S. Food and Drug Administration. The FDA has determined that such clearance or approval is not necessary. This test is used for clinical purposes. It should not be regarded as investigational or for research. [facility] is certified under the Clinical Laboratory Improvement Amendments of 1988 (CLIA) as qualified to perform high complexity clinical laboratory testing. PERFORMING LABORATORY: Technical preparation was performed by [facility], [address] [place] [address] (CLIA#: [id number]). Professional interpretation was performed by [facility], [address] [place] [address] (CLIA#: [id number]). Diagnostician: Coleen Frost MD Pathologist Electronically Signed 03/20/2025 Copies: ~ PATIENT NAME: FLOWER CHERRY PATHOLOGY DATE OF : 64 REPORT #: [id number] PHYSICIAN: SINA CHAPMAN PCP: RENEE BROWN PA-C REPORT IS CONFIDENTIAL AND NOT TO BE RELEASED WITHOUT AUTHORIZATION
--- NOTE | 2025-03-28 11:51 | OR ---
[facility] [address] [place], [place] [address] Signed DATE OF OPERATION: 03/14/2025 SURGEON: Jay Brizulea MD PREOPERATIVE DIAGNOSIS: Left laryngeal tumor. POSTOPERATIVE DIAGNOSIS: Left laryngeal tumor. PROCEDURE: Direct laryngoscopy, biopsy of left laryngeal tumor. ANESTHESIA: General orotracheal, FLIGHT SERVICE SPECIALIST, Jaquelin Buchanan. PREOP HISTORY: Mr. Cherry is a 65-year-old man with a left laryngeal tumor identified by a fiberoptic laryngoscopy in the office. He is a long-term smoker and taken to the operating for the above-mentioned procedures. PROCEDURE AND FINDINGS: After informed consent, the patient was taken to the operating room, placed in the supine position where general orotracheal anesthesia was induced. The patient and procedure were verified. The patient was repositioned. Anterior commissure laryngoscope was used to visualize the hypopharynx and larynx. There was an exophytic tumor in the left vallecula near the lateral pharyngeal wall. Looking further down into the larynx, this tumor extended down to along the aryepiglottic fold to the arytenoid. It was very large exophytic tumor. The vocal cords were not involved. Pyriform did not appear to be involved. Multiple biopsies were taken, sent to pathology in formalin. The lingual surface of the epiglottis was not involved, just the most lateral portion of the vallecula extending down to the lateral pharyngeal wall along the aryepiglottic fold. Bleeding was prominent, but stopped afterwards. Pharynx was suctioned clear of blood and secretions. Scope was removed. The patient was awakened, extubated, transported to the recovery room in good condition. No complications. BLOOD LOSS: Minimal. SPECIMEN: Electronically Signed By: JAY BRIZUELA MD 03/28/25 1151 PATIENT NAME: FLOWER CHERRY OPERATIVE REPORT DATE OF : 64 REPORT #: [id number] PHYSICIAN: JAY BRIZUELA MD PCP: RENEE BROWN PA-C REPORT IS CONFIDENTIAL AND NOT TO BE RELEASED WITHOUT AUTHORIZATION [address] [address] Signed To pathology. DRAINS: None. Jay Brizuela MD GC/MODL /[id number] Copies: ~ Electronically Signed By: JAY BRIZUELA MD 03/28/25 1151 PATIENT NAME: FLOWER CHERRY OPERATIVE REPORT DATE OF : 64 REPORT #: [id number] PHYSICIAN: JAY BRIZUELA MD PCP: RENEE BROWN PA-C REPORT IS CONFIDENTIAL AND NOT TO BE RELEASED WITHOUT AUTHORIZATION
== END 2025-03-14 12:28 | disposition home or self-care (01) ==
LOC: DS 08:54
PROVIDERS: ATTEND Otolaryngology
PROC: 0CBS8ZX Excision of Larynx, Via Natural or Artificial Opening Endoscopic, Diagnostic (ICD-10-PCS; principal; 2025-03-14 10:00)
DX: C32.9 Malignant neoplasm of larynx, unspecified (principal); K70.30 Alcoholic cirrhosis of liver without ascites; J44.9 Chronic obstructive pulmonary disease, unspecified; F17.200 Nicotine dependence, unspecified, uncomplicated; Z79.899 Other long term (current) drug therapy
CPT/HCPCS: 00320; 88305; 88342; 88344; 93005; 93010; 99406; J1100; J2003; J2405; J2704; J3010; J3490; J7121